=== PATIENT | male | born 2000 | race African-American/Black ===

== ENCOUNTER 2020-07-21 17:17 | Emergency (ER) | payer OTHER, SELFPAY ==
--- NOTE | ~2020-07-21 | XR_ITS ---
EXAMINATION: XR ankle LT min 3V DATE: 07/21/2020 17:51 INDICATION: Left ankle pain, initial encounter TECHNIQUE: Anteroposterior, lateral, mortise, and additional oblique view of the ankle were obtained. COMPARISON: None. FINDINGS: There is a linear heterotopic ossification projecting medial to the medial malleolus. Mild adjacent soft tissue swelling is present. Bone alignment is normal. IMPRESSION: 1. Possible avulsion injury of the medial malleolus. Reviewed, dictated and finalized at location A. [facility] [employer] [facility]
--- NOTE | ~2020-07-21 | XR_ITS ---
EXAMINATION: XR foot LT min 3V DATE: 07/21/2020 17:51 INDICATION: Left foot pain, initial encounter TECHNIQUE: Dorsoplantar, lateral, and 2 oblique views of the left foot were obtained. COMPARISON: None. FINDINGS: A heterotopic ossification projects dorsal to the talus on an oblique view. No additional o sseous abnormality of the foot is identified. There is a questionable avulsion of the medial malleolu s. There is mild dorsal soft tissue swelling of the foot. IMPRESSION: 1. Heterotopic ossification projecting dorsal to the talus which could reflect avulsion injury. 2. Possible avulsion at the medial aspect of the medial malleolus. Reviewed, dictated and finalized at location A. T MANAGER/DISPATCH
[2020-07-21 17:20] VITALS: BP 137/80; PULSE 78; RESP 18; TEMP 36.1; O2SAT 98
--- NOTE | 2020-07-21 18:49 | ED.GENADULT ---
HPI - General Adult General Chief complaint: Extremity Injury, Lower Stated complaint: left ankle pain Time Seen by Provider: 07/21/20 17:30 Source: patient Mode of arrival: ambulatory Limitations: no limitations History of Present Illness HPI narrative: Patient presents with chief complaint of pain to his left ankle after inverting it while skateboarding prior to arrival. Patient reports there is swelling and increased pain. Patient denies any other injuries. Patient reports he has sprained the ankle in the past but denies prior fractures. Related Data Allergies Allergy/AdvReac Type Severity Reaction Status Date / Time Sulfa (Sulfonamide Allergy Unknown RASH Verified 07/21/20 17:23 Antibiotics) sulfamethoxazole Allergy Rash Verified 07/21/20 17:23 trimethoprim Allergy Rash Verified 07/21/20 17:23 Review of Systems Review of Systems: Narrative: CONSTITUTIONAL: Denies fever, chills, or sweats. EYES: Denies visual changes, redness, or discharge. ENT: Denies rhinorrhea, congestion, sore throat, or otalgia. CARDIOVASCULAR: Denies chest pain, palpitations, or edema. RESPIRATORY: Denies cough or dyspnea. GASTROINTESTINAL: Denies abdominal pain, nausea, vomiting, or diarrhea. GENITOURINARY: Denies dysuria or hematuria. SKIN: Denies rash or itching. MUSCULOSKELETAL: Reports left ankle pain denies back pain or myalgia. NEUROLOGIC: Denies headache, numbness, dizziness, or weakness. PSYCHIATRIC: Denies anxiety or depression. PMFSH Social History Social History Gender identity (if verbalized by the patient): Male Exam Narrative: Exam Narrative: GENERAL: Well-appearing, well-nourished, and in no acute distress. HEAD: Normocephalic, atraumatic. EYES: PERRLA and EOMI. CHEST: Clear to auscultation. No respiratory distress. No wheezes rales or rhonchi HEART: Regular rate and rhythm. No murmur heard. EXTREMITIES: Swelling and discomfort with palpation over the medial and lateral malleolus. No discomfort approximately or distally to the ankle. Patient declines to plantar or dorsiflex or invert or yoshi his foot due to pain. Pulses intact. No open wounds. SKIN: Warm, dry, no rash. NEURO: No focal deficits. Alert and oriented x3. PSYCH: Normal mood and affect. Course Vital Signs Vital signs: Vital Signs Temperature 97 F L 07/21/20 17:20 Pulse Rate 78 07/21/20 17:20 Respiratory Rate 18 07/21/20 17:20 Blood Pressure 137/80 07/21/20 17:20 Pulse Oximetry 98 07/21/20 17:20 Temperature 97 F L 07/21/20 17:20 Pulse Rate 78 07/21/20 17:20 Respiratory Rate 18 07/21/20 17:20 Blood Pressure 137/80 07/21/20 17:20 Pulse Oximetry 98 07/21/20 17:20 Medical Decision Making MDM Narrative Medical decision making narrative: Patient is placed in Kit wrap and postop shoe and given crutches as he is not allowed to weight-bear on the left foot. Patient instructed of the need to follow-up with logging specialist for further evaluation of tendon ligament damage. Patient is given RICE instructions. Patient verbalized understanding agreement with plan and denies any other symptoms or concerns. Differential Diagnosis Differential Diagnosis: Fracture, sprain, strain Vital Signs Vital Signs: Vital Signs Temperature 97 F L 07/21/20 17:20 Pulse Rate 78 07/21/20 17:20 Respiratory Rate 18 07/21/20 17:20 Blood Pressure 137/80 07/21/20 17:20 Pulse Oximetry 98 07/21/20 17:20 Temperature 97 F L 07/21/20 17:20 Pulse Rate 78 07/21/20 17:20 Respiratory Rate 18 07/21/20 17:20 Blood Pressure 137/80 07/21/20 17:20 Pulse Oximetry 98 07/21/20 17:20 Imaging Data Radiologist's impression: ITS Impressions Foot X-Ray 07/21/20 18:03 IMPRESSION: 1. Heterotopic ossification projecting dorsal to the talus which could reflect avulsion injury. 2. Possible avulsion at the medial aspect of the medial malleolus. Ankle X-Ray 07/21/20 18:08 IMPRESSION: 1. Possible avulsion inj
== END 2020-07-21 19:00 | disposition home or self-care (01) ==
PROVIDERS: Emergency Provider Emergency Medicine; PCP Family Medicine
DX: S93.402A Sprain of unspecified ligament of left ankle, initial encounter (principal); S96.912A Strain of unspecified muscle and tendon at ankle and foot level, left foot, initial encounter; X50.9XXA Other and unspecified overexertion or strenuous movements or postures, initial encounter; Y93.51 Activity, roller skating (inline) and skateboarding
CPT/HCPCS: 73610; 73630; 99283

== ENCOUNTER 2024-04-10 18:48 | Emergency (ER) | payer OTHER, SELFPAY ==
--- NOTE | ~2024-04-10 | XR_ITS ---
XR chest 1V portable DATE: 04/10/2024 20:57 INDICATION: Cough TECHNIQUE: Portable AP chest on 04/10/2024 at 2055 hours COMPARISON: None FINDINGS: Normal heart size. No hilar or mediastinal enlargement. No pulmonary infiltrate or consolid ation, pleural effusion or pulmonary vascular congestion or pneumothorax. IMPRESSION: No active cardiopulmonary disease Reviewed, dictated and finalized at location A. SS COORDINATOR
[2024-04-10 18:51] VITALS: BP 134/70; PULSE 80; RESP 14; TEMP 36.5; O2SAT 100
[2024-04-10 20:37] VITALS: BP 122/73; PULSE 85; RESP 17; TEMP 36.9; O2SAT 99
[2024-04-10 20:45] VITALS: O2SAT 99
[2024-04-10] MEDS: predniSONE 20 MG TABLET 40 MG PO (21:40)
[2024-04-10] MEDS: IBUPROFEN 600 MG TABLET PO (21:40)
[2024-04-10 21:42] LABS: Strep Group A RT-PCR NOT DETECTED (Negative)
[2024-04-10 21:52] VITALS: PULSE 68; RESP 22
[2024-04-10] MEDS: IPRATROPIUM 0.5 MG/ALBUTEROL SULFATE 2.5 MG AMPUL.NEB 3 ML INHALATION (21:52)
[2024-04-10 21:53] LABS: Influenza A QL RT-PCR Negative (Negative); Influenza B QL RT-PCR Negative (Negative); RSV RNA, RT-PCR Negative (Negative); SARS-CoV-2 RNA PCR Negative (Negative)
[2024-04-10 21:58] VITALS: PULSE 65; RESP 22
--- NOTE | 2024-04-10 22:22 | ED_ITS ---
HPI - URI/Sore Throat General Chief Complaint: Upper Respiratory Infection Stated Complaint: cough Time Seen by Provider: 04/10/24 21:11 Source: patient Mode of arrival: ambulatory Limitations: no limitations History of Present Illness HPI Narrative: Patient is a 24 year old male who presents to the ER with respiratory issues. He reports his throat started hurting approximately 4 days ago and this morning he started experiencing respiratory issues. Patient reports it hurts to cough and breathe. He declines any sick contacts. Patient denies shortness of breath, chest pain, fevers. He does endorse intermittent wheezing. Patient denies any relevant medical history related to this ER visit. Related Data Allergies Allergy/AdvReac Type Severity Reaction Status Date / Time Sulfa (Sulfonamide Allergy Unknown RASH Verified 04/10/24 18:48 Antibiotics) sulfamethoxazole Allergy Rash Verified 04/10/24 18:48 trimethoprim Allergy Rash Verified 04/10/24 18:48 Review of Systems Review of Systems: All systems reviewed & are unremarkable except as noted in HPI and below PMFSH Social History Social History Gender identity (if verbalized by the patient): Male Exam Narrative: GENERAL: Well appearing, well-nourished, non-toxic, in no acute distress. HEAD: Normocephalic, atraumatic. NECK: Supple. No adenopathy, no masses. RESPIRATORY: Airway patent, respirations nonlabored. Clear to auscultation bilaterally, no rales, rhonchi, wheezing. CARDIOVASCULAR: Regular rate and rhythm without murmurs, rubs, or gallops. Peripheral pulses 2+ and equal bilaterally. ABDOMINAL: Soft, nontender, nondistended, no hepatosplenomegaly. Normoactive BS. MUSCULOSKELETAL: Moves all extremities. Strength/ROM intact without gross deformities. SKIN: Warm, dry, normal color. No rashes. NEURO: A&O X3. Speech clear. Cranial nerves II-XII grossly intact. Steady gait. No ataxic movements. PSYCHIATRIC: Appropriate mood and affect. Normal interaction. Course Vital Signs Vital signs: Vital Signs Temperature 36.5 C 04/10/24 18:51 Pulse Rate 80 04/10/24 18:51 Respiratory Rate 14 04/10/24 18:51 Blood Pressure 134/70 04/10/24 18:51 Pulse Oximetry 100 04/10/24 18:51 Temperature 36.9 C 04/10/24 20:37 Pulse Rate 65 04/10/24 21:58 Respiratory Rate 22 H 04/10/24 21:58 Blood Pressure 122/73 04/10/24 20:37 Pulse Oximetry 99 04/10/24 20:45 Oxygen Delivery Room Air 04/10/24 20:45 MDM - URI/Sore Throat MDM Narrative Medical decision making narrative: Patient is a 24 year old male who presents to the ER with respiratory issues. He reports his throat started hurting approximately 4 days ago and this morning he started experiencing respiratory issues. Patient reports it hurts to cough and breathe. He declines any sick contacts. Patient denies shortness of breath, chest pain, fevers. He does endorse intermittent wheezing. Patient denies any relevant medical history related to this ER visit. Labs Ordered: influenza/COVID/RSV Imaging Ordered: chest x-ray Results: Chest x-ray indicates No active cardiopulmonary disease Diagnosis: Bronchitis, upper respiratory infection Disposition/Plan: Patient's respiratory swabs were all negative. His chest x- ray did indicate any acute disease. Results relayed to patient. Will discharge patient with inhaler for him to use in case he starts wheezing again. Will also discharge patient on oral steroids to help decrease inflammation. Differential Diagnosis Differential diagnosis: Likely upper respiratory infection, sinusitis, viral infection, bronchitis, influenza and pharyngitis Lab Data Attestation: I reviewed the patient's lab results. Labs: Lab Results 04/10/24 Range/Units 20:43 Influenza A (RT-PCR) Negative (Negative) Influenza B (RT-PCR) Negative (Negative) RSV (RT-PCR) Negative (Negative) SARS-CoV-2 RNA (RT-PCR) Negative (Negative) Group A Strep (PCR) Not detected (Negative) Imaging Data Attestation: I personally reviewed and interpreted this imaging study as follows: Radiologist's impression: Impressions Chest X-Ray 04/10/24 21:07 IMPRESSION: No active cardiopulmonary disease Discharge Plan Discharge Clinical Impression: Upper respiratory infection, Bronchitis Patient Disposition: Home, Self-Care Condition: Stable Instructions: Antibiotic Form, Acute Bronchitis (ED) Additional Instructions: Please return to the ER with any worsening symptoms. Follow-up with your primary care provider in the next couple of days. Take all medications as prescribed. Prescriptions: New guaifenesin [Adult Tussin Chest Congestion] 100 mg/5 mL liquid 200 mg PO Q4H PRN (Reason: cough) Qty: 1000 0RF benzonatate 200 mg capsule 200 mg PO BID PRN (Reason: cough) Qty: 10 0RF albuterol sulfate 90 mcg/actuation HFA aerosol inhaler 1 inh inhalation QID PRN (Reason: shortness of breath or wheezing) Qty: 6.7 0RF methylprednisolone [Medrol (Brian)] 4 mg tablets,dose pack See Rx Instructions .ROUTE .COMPLEX Qty: 21 0RF Rx Instructions: for 6 days Follow-up/Referrals: Shaw,Luh Reveles MD [Primary Care Provider] - Time of Disposition: 23:09
[2024-04-10 23:19] VITALS: BP 140/77; PULSE 79; RESP 17; TEMP 36.6; O2SAT 98
== END 2024-04-10 23:20 | disposition home or self-care (01) ==
PROVIDERS: Student in an Organized Health Care Education/Training Program; Emergency Provider Registered Nurse; PCP Family Medicine
DX: J06.9 Acute upper respiratory infection, unspecified (principal); J40 Bronchitis, not specified as acute or chronic; Z20.822 Contact with and (suspected) exposure to COVID-19
CPT/HCPCS: 71045; 87637; 87651; 94640; 99283; A9270; J7512